=== PATIENT | male | born 1975 | race Caucasian/White ===

== ENCOUNTER 2016-06-10 11:38 | Emergency (ER) | payer SELFPAY ==
[2016-06-10 12:07] VITALS: RESP 16; TEMP 98.8
--- NOTE | 2016-06-10 12:16 | ED ---
Upper Extremity HPI - General Chief Complaint: Extremity Injury, Upper Stated Complaint: RT ARM PAIN FROM FALL Time Seen by Provider: 06/10/16 12:09 Source: patient, RN notes reviewed Mode of arrival: ambulatory Limitations: no limitations - History of Present Illness Initial Comments: 41-year-old male presents to the emergency Department chief complaint of right hand and right forearm pain. Patient states she tripped and fell last night. Patient states he landed onto his right hand and forearm. Patient states he has pain to the second and third digit as well as pain to the mid part of the forearm. Patient states he did not hit his head there is no other injuries in the exam. Patient states he has a history of multiple broken bones in the past so she was concerned. Patient states is not currently having any other symptoms at this time. Patient denies any recent fever, chills, shortness of breath, chest pain, back pain, abdominal pain, nausea vomiting, numbness or tingling, dysuria or hematuria, constipation or diarrhea, headaches or visual changes, or any other current symptoms. - Related Data Home Medications Medication Instructions Recorded Confirmed No Known Home Medications [No 06/10/16 06/10/16 Known Home Medications] Allergies Allergy/AdvReac Type Severity Reaction Status Date / Time No Known Allergies Allergy Verified 06/10/16 12:34 Review of Systems ROS Statement: Those systems with pertinent positive or pertinent negative responses have been documented in the HPI. ROS Other: All systems not noted in ROS Statement are negative. Past Medical History Past Medical History: No Reported History History of Any Multi-Drug Resistant Organisms: None Reported Past Surgical History: Orthopedic Surgery Past Psychological History: No Psychological Hx Reported Smoking Status: Current every day smoker Past Alcohol Use History: Occasional Past Drug Use History: None Reported General Exam - General Exam Comments Initial Comments: General: The patient is awake and alert, in no distress, and does not appear acutely ill. Neck: The neck is supple, there is no tenderness . Cardiovascular: There is a regular rate and rhythm. No murmur, rub or gallop is appreciated. Respiratory: Lungs are clear to auscultation, respirations are non-labored, breath sounds are equal. No wheezes, stridor, rales, or rhonchi. Musculoskeletal: Sensation intact with 2+ pulses. Infection. full Range of Motion of the right elbow. Patient does have tenderness along the ulna at the mid forearm. There is some tenderness along the second and third metacarpal bones as well. No anatomical snuffbox tenderness. No deformity or swelling. No abrasion or skin trauma. Neurological: CN II-XII intact, There are no obvious motor or sensory deficits. Coordination appears grossly intact. Speech is normal. Skin: Skin is warm and dry and no rashes or lesions are noted. Psychiatric: Normal mood and affect. Limitations: no limitations Course Vital Signs 06/10/16 12:05 Temperature 98.8 F Pulse Rate 77 Respiratory 16 Rate Blood Pressure 133/89 O2 Sat by Pulse 98 Oximetry Procedures - Orthopedic Splinting/Casting Injury #1 Side: right Upper Extremity Injury Location: forearm, wrist Upper Extremity Immobilizer: Forest wrap Medical Decision Making - Medical Decision Making 40-year-old male presents to emergency room chief complaint of right arm and hand pain after a fall. This patient's x-rays are reviewed that did not show any acute fractures. This time the patient appears to have a right forearm contusion and right wrist sprain. This time patient was placed in an Forest wrap. We discussed rice Motrin Tylenol. We discussed from comparison follow-up. Patient stated he understood and all questions have been answered. He will be discharged home. - Radiology Data Radiology results: report reviewed, image reviewed Disposition Clinical Impression: Right wrist sprain, Contusion of right forearm Disposition: HOME SELF-CARE Condition: Stable Instructions: Wrist Injury (ED) Additional Instructions: Please use medication as discussed. Please follow up with family doctor if symptoms have not improved over the next two days. Please return to the emergency room if your symptoms increase or worsen or for any other concerns. Referrals: Jocelyn Araya MD [STAFF PHYSICIAN] - 1-2 days Time of Disposition: 14:18
--- NOTE | 2016-06-10 12:36 | XR ---
EXAMINATION TYPE: XR forearm RT DATE OF EXAM ORDERED: 06/10/2016 12:23 PM HISTORY: Pain. COMPARISON: None. FINDINGS: No fracture, dislocation or other acute osseous lesion is seen. IMPRESSION: NORMAL RIGHT RADIUS AND ULNA.
[2016-06-10] MEDS ORDERED: KETOROLAC 60 MG/2 ML VIAL IM STA (14:09)
[2016-06-10 14:36] VITALS: BP 137/79; PULSE 60
--- NOTE | 2016-06-12 14:40 | XR ---
Right hand HISTORY: Pain 3 views of the right hand No comparisons Bone mineralization, joint spaces and alignment are maintained IMPRESSION: No fracture or dislocation.
== END 2016-06-10 14:43 | disposition home or self-care (01) ==
LOC: EC 11:38
DX: S63.501A Unspecified sprain of right wrist, initial encounter (principal); S50.11XA Contusion of right forearm, initial encounter; F17.200 Nicotine dependence, unspecified, uncomplicated; W01.0XXA Fall on same level from slipping, tripping and stumbling without subsequent striking against object, initial encounter
CPT/HCPCS: 99283